=== PATIENT | male | born 1995 | race Caucasian/White ===

== ENCOUNTER 2019-03-28 10:07 | Emergency (ER) | payer OTHER, SELFPAY ==
[2019-03-28] MEDS ORDERED: NA CHLORIDE 0.9% 1,000 ML ONE (11:13)
[2019-03-28] MEDS ORDERED: LORazepam 2 MG/ML VIAL ONE (11:17)
[2019-03-28 11:18] LABS: Absolute Lymphocytes (CBC) 1.5 K/uL (0.7-4.9); Basophils % 0.3 % (0-1.3); Hematocrit 52.2 % (39.6-49.0); MPV 8.1 fL (7.6-11.3); RBC Red Blood Cell Count 5.49 M/uL (4.33-5.43)
[2019-03-28 11:34] LABS: Albumin 4.5 g/dL (3.4-5.0); Bilirubin Direct 0.2 mg/dL (0-0.2); Bilirubin Total 0.9 mg/dL (0.2-1.0); Potassium 4.3 mmol/L (3.5-5.1); Protein, Total 8.5 g/dL (6.4-8.2)
--- NOTE | 2019-03-28 12:41 | ER ---
Nurse's Notes [facility] Name: Porfirio Bangura Age: 23 yrs Sex: Male : 1995 Arrival Date: 03/28/2019 Time: 10:09 Bed 5 Private MD: Diagnosis: Anxiety disorder, unspecified;Nausea and vomiting Presentation: 03/28 10:32 Presenting complaint: Patient states: "I haven't eaten in 4 days, I'm pretty sure its aj1 because of my anxiety and depression" Patient reports that he just hasn't had any appetite. Patient reports nausea, vomiting, diarrhea. Denies fever. Reports epigastric pain when he eats. Transition of care: patient was not received from another setting of care. Onset of symptoms was March 28, 2019. Risk Assessment: Do you want to hurt yourself or someone else? Patient reports no desire to harm self or others. Initial Sepsis Screen: Does the patient meet any 2 criteria? HR > 90 bpm. No. Patient's initial sepsis screen is negative. Does the patient have a suspected source of infection? Yes: Acute abdominal pain. Care prior to arrival: None. 10:32 Method Of Arrival: Ambulatory aj1 10:32 Acuity: FELTON 3 aj1 Triage Assessment: 10:34 General: Appears in no apparent distress. comfortable, Behavior is calm, cooperative, aj1 appropriate for age. Pain: Denies pain. Neuro: Level of Consciousness is awake, alert, obeys commands, Oriented to person, place, time, situation. Cardiovascular: Patient's skin is warm and dry. Respiratory: Airway is patent Respiratory effort is even, unlabored, Respiratory pattern is regular, symmetrical. GI: Reports upper abdominal pain, diarrhea, nausea, vomiting. Historical: - Allergies: 10:34 Bees; aj1 - Home Meds: 10:34 None [Active]; aj1 - PMHx: 10:34 None; aj1 - PSHx: 10:34 None; aj1 - Immunization history:: Flu vaccine is up to date. - Social history:: Smoking status: Patient/guardian denies using tobacco. - Ebola Screening: : Patient denies travel to an Ebola-affected area in the 21 days before illness onset. Screenin:56 Abuse screen: Denies threats or abuse. Denies injuries from another. Nutritional bp screening: No deficits noted. Tuberculosis screening: No symptoms or risk factors identified. Fall Risk None identified. Assessment: 10:56 General: SEE TRIAGE NOTE. bp 11:55 Reassessment: VS STABLE, ALL CURRENT ORDERS COMPLETED. IVF INFUSING. bp 12:55 Reassessment: Patient appears in no apparent distress at this time. Patient is alert, ca1 oriented x 3, equal unlabored respirations, skin warm/dry/pink. Pt reported that one of his buddies are picking him up from the ER. Vital Signs: 10:34 BP 137 / 81; Pulse 92; Resp 18; Temp 98.3; Pulse Ox 100% on R/A; Weight 77.11 kg (R); aj1 Height 5 ft. 11 in. (180.34 cm) (R); Pain 0/10; 11:09 BP 130 / 88; Pulse 87; Resp 16; Pulse Ox 100% ; bp 11:55 BP 127 / 80; Pulse 60; Resp 14; Pulse Ox 100% ; bp 12:58 BP 135 / 78; Pulse 77; Resp 17 S; Pulse Ox 100% on R/A; ca1 10:34 Body Mass Index 23.71 (77.11 kg, 180.34 cm) aj1 ED Course: 10:09 Patient arrived in ED. as 10:34 Triage completed. aj1 10:34 Arm band placed on Patient placed in waiting room, Patient notified of wait time. aj1 10:52 Linh Correia [facility]-C is [facility]. kb 10:52 Titus Lion MD is Attending Physician. kb 10:55 Gareth Natarajan, ANGLE is Primary Nurse. bp 10:56 Patient has correct armband on for positive identification. Bed in low position. Call bp light in reach. Side rails up X2. 11:00 Inserted saline lock: 22 gauge in right forearm, using aseptic technique. Blood bp collected. 12:59 No provider procedures requiring assistance completed. IV discontinued, intact, ca1 bleeding controlled, No redness/swelling at site. Pressure dressing applied. Administered Medications: 11:10 Drug: NS 0.9% 1000 ml Route: IV; Rate: 1000 ml; Site: right forearm; bp 11:17 Drug: Ativan 0.5 mg Route: IVP; Site: right forearm; bp Outcome: 12:38 Discharge ordered by . kb 12:59 Discharged to home ambulatory. ca1 12:59 Condition: stable 12:59 Discharge instructions given to patient, Instructed on discharge instructions, follow up and referral plans. medication usage, Demonstrated understanding of instructions, follow-up care, medications, Prescriptions given X 1. 12:59 Patient left the ED. ca1 Signatures: Linh Correia, COAL PASSER-C COAL PASSER-Darby Blum RN RN aj1 Pati Perry Brian, RN RN bp Stephanie Shabazz RN RN ca1
--- NOTE | 2019-03-28 12:41 | EDPHYS ---
Physician Documentation [facility] Name: Porfirio Bangura Age: 23 yrs Sex: Male : 1995 Arrival Date: 03/28/2019 Time: 10:09 Bed 5 Private MD: ED Physician Titus Lion HPI: 03/28 12:34 This 23 yrs old Male presents to ER via Ambulatory with complaints of kb Depression, Anxiety. 12:34 The patient presents to the emergency department with nausea, vomiting. Onset: The kb symptoms/episode began/occurred 4 day(s) ago. Possible causes: anxiety. The symptoms are aggravated by nothing. The symptoms are alleviated by nothing. Associated signs and symptoms: Pertinent positives: nausea, vomiting. Severity of symptoms: At their worst the symptoms were moderate in the emergency department the symptoms are unchanged. The patient has experienced similar episodes in the past. The patient has not recently seen a physician. Pt reports decreased appetite, nausea and vomiting for 4 days. States he has had this before when his anxiety is high and right now it is "threw the roof." Reports nothing triggered his anxiety, it just comes out of the blue every so often. States he has never taken anything for his anxiety, he normally self medicated with alcohol. Reports he has had a couple of drinks at night to help him sleep over the past few nights.. Historical: - Allergies: 10:34 Bees; aj1 - Home Meds: 10:34 None [Active]; aj1 - PMHx: 10:34 None; aj1 - PSHx: 10:34 None; aj1 - Immunization history:: Flu vaccine is up to date. - Social history:: Smoking status: Patient/guardian denies using tobacco. - Ebola Screening: : Patient denies travel to an Ebola-affected area in the 21 days before illness onset. ROS: 12:33 Constitutional: Negative for fever, chills, and weight loss, ENT: Negative for injury, kb pain, and discharge, Neck: Negative for injury, pain, and swelling, Cardiovascular: Negative for chest pain, palpitations, and edema, Respiratory: Negative for shortness of breath, cough, wheezing, and pleuritic chest pain, Back: Negative for injury and pain, MS/Extremity: Negative for injury and deformity, Skin: Negative for injury, rash, and discoloration, Neuro: Negative for headache, weakness, numbness, tingling, and seizure. 12:33 Constitutional: Positive for poor PO intake. 12:33 Abdomen/GI: Positive for nausea and vomiting. 12:33 Psych: Positive for anxiety. Exam: 12:33 Constitutional: This is a well developed, well nourished patient who is awake, alert, kb and in no acute distress. Head/Face: Normocephalic, atraumatic. ENT: Nares patent. No nasal discharge, no septal abnormalities noted. Tympanic membranes are normal and external auditory canals are clear. Oropharynx with no redness, swelling, or masses, exudates, or evidence of obstruction, uvula midline. Mucous membranes moist. Neck: Trachea midline, no thyromegaly or masses palpated, and no cervical lymphadenopathy. Supple, full range of motion without nuchal rigidity, or vertebral point tenderness. No Meningismus. Chest/axilla: Normal chest wall appearance and motion. Nontender with no deformity. No lesions are appreciated. Cardiovascular: Regular rate and rhythm with a normal S1 and S2. No gallops, murmurs, or rubs. Normal PMI, no JVD. No pulse deficits. Respiratory: Lungs have equal breath sounds bilaterally, clear to auscultation and percussion. No rales, rhonchi or wheezes noted. No increased work of breathing, no retractions or nasal flaring. Abdomen/GI: Soft, non-tender, with normal bowel sounds. No distension or tympany. No guarding or rebound. No evidence of tenderness throughout. Back: No spinal tenderness. No costovertebral tenderness. Full range of motion. Skin: Warm, dry with normal turgor. Normal color with no rashes, no lesions, and no evidence of cellulitis. MS/ Extremity: Pulses equal, no cyanosis. Neurovascular intact. Full, normal range of motion. Neuro: Awake and alert, GCS 15, oriented to person, place, time, and situation. Cranial nerves II-XII grossly intact. Motor strength 5/5 in all extremities. Sensory grossly intact. Cerebellar exam normal. Normal gait. 12:33 Psych: Behavior/mood is cooperative, anxious, Affect is calm, Oriented to person, place, time, Patient has no thoughts/intents to harm self or others. Judgement / Insight is normal. Memory is normal. Delusions/hallucinations are not present. Vital Signs: 10:34 BP 137 / 81; Pulse 92; Resp 18; Temp 98.3; Pulse Ox 100% on R/A; Weight 77.11 kg (R); aj1 Height 5 ft. 11 in. (180.34 cm) (R); Pain 0/10; 11:09 BP 130 / 88; Pulse 87; Resp 16; Pulse Ox 100% ; bp 11:55 BP 127 / 80; Pulse 60; Resp 14; Pulse Ox 100% ; bp 12:58 BP 135 / 78; Pulse 77; Resp 17 S; Pulse Ox 100% on R/A; ca1 10:34 Body Mass Index 23.71 (77.11 kg, 180.34 cm) aj1 MDM: 10:52 Patient medically screened. kb 12:32 Data reviewed: vital signs, nurses notes. Data interpreted: Pulse oximetry: on room air kb is 100 %. Interpretation: normal. Counseling: I had a detailed discussion with the patient and/or guardian regarding: the historical points, exam findings, and any diagnostic results supporting the discharge/admit diagnosis, lab results, the need for outpatient follow up, a family practitioner, to return to the emergency department if symptoms worsen or persist or if there are any questions or concerns that arise at home. ED course: Pt reports he feels better after ativan. 03/28 10:53 Order name: Basic Metabolic Panel; Complete Time: 11:37 kb 03/28 10:53 Order name: CBC with Diff; Complete Time: 11:31 kb 03/28 10:53 Order name: Hepatic Function; Complete Time: 11:37 kb 03/28 10:53 Order name: Lipase; Complete Time: 11:37 kb 03/28 10:53 Order name: IV Saline Lock; Complete Time: 11:09 kb 03/28 10:53 Order name: Labs collected and sent; Complete Time: 11:09 kb Administered Medications: 11:10 Drug: NS 0.9% 1000 ml Route: IV; Rate: 1000 ml; Site: right forearm; bp 11:17 Drug: Ativan 0.5 mg Route: IVP; Site: right forearm; bp Disposition: 17:44 Co-signature as Attending Physician, Titus Lion MD Did not see or evaluate the ps1 patient. Signing the chart for administrative purposes. Not an endorsement of care provided. . Disposition: 03/28/19 12:38 Discharged to Home. Impression: Anxiety disorder, unspecified, Nausea and vomiting. - Condition is Stable. - Discharge Instructions: Nausea and Vomiting, Adult, [id number], Panic Attacks, [id number]. - Prescriptions for Hydroxyzine HCl 25 mg Oral Tablet - take 1 tablet by ORAL route every 6 hours As needed; 30 tablet. - Medication Reconciliation Form, Thank You Letter, Antibiotic Education, Prescription Opioid Use, Work release form form. - Follow up: Emergency Department; When: As needed; Reason: Worsening of condition. Follow up: Private Physician; When: 2 - 3 days; Reason: Recheck today's complaints, Continuance of care, Re-evaluation by your physician. Signatures: Dispatcher [employer] EDLinh Stover, RANDA-C [employer] FLATBED DRIVER-Darby Blum RN RN aj1 Gareth Natarajan RN RN bp Titus Lion MD MD ps1 Stephanie Shabazz RN RN ca1 Corrections: (The following items were deleted from the chart) 12:59 12:38 03/28/2019 12:38 Discharged to Home. Impression: Anxiety disorder, unspecified; ca1 Nausea and vomiting. Condition is Stable. Forms are Medication Reconciliation Form, Thank You Letter, Antibiotic Education, Prescription Opioid Use. Follow up: Emergency Department; When: As needed; Reason: Worsening of condition. Follow up: Private Physician; When: 2 - 3 days; Reason: Recheck today's complaints, Continuance of care, Re-evaluation by your physician. kb
[2019-03-28 13:06] VITALS: TEMP 98.3; O2SAT 100
[2019-03-28 13:09] VITALS: BP 135/78
== END 2019-03-28 12:59 | disposition home or self-care (01) ==
LOC: ER 10:07
DX: F41.9 Anxiety disorder, unspecified (principal); R11.2 Nausea with vomiting, unspecified; Z91.030 Bee allergy status
CPT/HCPCS: 85025; 80048; 36415; 80076; 83690; 96374; 99284; J7030

== ENCOUNTER 2019-03-30 07:10 | Emergency (ER) | payer OTHER ==
--- OUTSIDE RECORDS SUMMARY | 2019-03-30 07:12 | XMS REPORT ---
:1995 [facility] [address] [place] [address] Care Team Providers Name Role Phone Unavailable Unavailable Unavailable Problems This patient has no known problems. Allergies, Adverse Reactions, Alerts This patient has no known allergies or adverse reactions. Medications This patient has no known medications.
[2019-03-30] MEDS ORDERED: DIAZEPAM 2 MG TABLET ONE (07:37)
--- NOTE | 2019-03-30 08:03 | ER ---
Nurse's Notes [facility] Name: Porfirio Bangura Age: 23 yrs Sex: Male : 1995 Arrival Date: 03/30/2019 Time: 07:12 Bed 7 Private MD: Diagnosis: Anxiety disorder, unspecified Presentation: 03/30 07:18 Presenting complaint: Patient states: "Panic attack" Pt reports he has had severe ss anxiety x 5 days. Was seen in ER Friday and given hydroxizine , but reports that it is not helping. Transition of care: patient was not received from another setting of care. Onset of symptoms was March 25, 2019. Risk Assessment: Do you want to hurt yourself or someone else? Patient reports no desire to harm self or others. Initial Sepsis Screen: Does the patient meet any 2 criteria? HR > 90 bpm. Does the patient have a suspected source of infection? No. Patient's initial sepsis screen is negative. Care prior to arrival: None. 07:18 Method Of Arrival: Ambulatory ss 07:18 Acuity: FELTON 4 ss Historical: - Allergies: 07:22 Bees; ss - Home Meds: 07:22 Hydroxyzine Oral for Anxiety [Active]; ss - PMHx: 07:22 None; ss - PSHx: 07:22 None; ss - Immunization history:: Adult Immunizations up to date. - Social history:: Smoking status: Patient uses tobacco products, "I jewel". - Ebola Screening: : Patient denies exposure to infectious person Patient denies travel to an Ebola-affected area in the 21 days before illness onset. Screenin:26 Abuse screen: Denies threats or abuse. Denies injuries from another. Nutritional sg screening: No deficits noted. Tuberculosis screening: No symptoms or risk factors identified. Never had TB. Fall Risk None identified. Assessment: 07:24 General: Appears in no apparent distress. slender, well groomed, well developed, well sg nourished, Behavior is calm, cooperative, appropriate for age. Neuro: Level of Consciousness is awake, alert, obeys commands, Oriented to person, place, time, Insurance Checker are equal bilaterally Moves all extremities. Speech is normal, Facial symmetry appears normal. Cardiovascular: Capillary refill is brisk in bilateral fingers Patient's skin is warm and dry. Chest pain is denied. Respiratory: Airway is patent Respiratory effort is even, unlabored, Respiratory pattern is regular, symmetrical. GI: Abdomen is flat, non-distended. : No signs and/or symptoms were reported regarding the genitourinary system. EENT: No signs and/or symptoms were reported regarding the EENT system. Derm: Skin is pink, warm \\T\\ dry. Musculoskeletal: Circulation, motion, and sensation intact. Range of motion: intact in all extremities. Vital Signs: 07:22 BP 131 / 86; Pulse 92; Resp 18; Temp 98.9(TE); Pulse Ox 99% on R/A; Weight 77.11 kg; ss Height 5 ft. 11 in. (180.34 cm); Pain 0/10; 07:22 Body Mass Index 23.71 (77.11 kg, 180.34 cm) ED Course: 07:12 Patient arrived in ED. rg4 07:14 Braulio Hill FNP-C [facility]. la1 07:14 Jose Santacruz MD is Attending Physician. la1 07:21 Triage completed. ss 07:22 Arm band placed on right wrist. ss 07:24 Michael Duran, RN is Primary Nurse. sg 07:26 No provider procedures requiring assistance completed. sg Administered Medications: 07:37 Drug: Valium 2 mg Route: PO; sg Outcome: 08:02 Discharge ordered by . la1 08:15 Patient left the ED. ss Signatures: Michael Duran, RN Deja Bird RN RN Braulio Hill FNP-C FNP-Flor Littlejohn rg4
--- NOTE | 2019-03-30 08:03 | EDPHYS ---
Physician Documentation [facility] Name: Porfirio Bangura Age: 23 yrs Sex: Male : 1995 Arrival Date: 03/30/2019 Time: 07:12 Bed 7 Private MD: ED Physician Jose Santacruz HPI: 03/30 07:34 This 23 yrs old Male presents to ER via Ambulatory with complaints of Anxiety.la1 07:34 Onset: The symptoms/episode began/occurred last week. Associated signs and symptoms: la1 Pertinent positives: palpitations. Modifying factors: The patient symptoms are alleviated by nothing, the patient symptoms are aggravated by work. The patient has experienced similar episodes in the past, multiple times. The patient has been recently seen at the [facility] Emergency Department. Pt was seen here in ED for anxiety, had labs and was given hydroxyzine. Pt states still not feeling well, very anxious, not sleeping. Pt denies SI/HI.. Historical: - Allergies: 07:22 Bees; ss - Home Meds: 07:22 Hydroxyzine Oral for Anxiety [Active]; ss - PMHx: 07:22 None; ss - PSHx: 07:22 None; ss - Immunization history:: Adult Immunizations up to date. - Social history:: Smoking status: Patient uses tobacco products, "I jewel". - Ebola Screening: : Patient denies exposure to infectious person Patient denies travel to an Ebola-affected area in the 21 days before illness onset. ROS: 07:36 Constitutional: Negative for fever, chills, and weight loss, Eyes: Negative for injury, la1 pain, redness, and discharge, ENT: Negative for injury, pain, and discharge, Cardiovascular: Negative for chest pain, edema. Positive for palpitaitons Respiratory: Negative for shortness of breath, cough, wheezing, and pleuritic chest pain, Abdomen/GI: Negative for abdominal pain, nausea, vomiting, diarrhea, and constipation, MS/Extremity: Negative for injury and deformity, Neuro: Negative for headache, weakness, numbness, tingling, and seizure, Psych: Negative for depression, suicide ideation, homicidal ideation, and hallucinations. Positive for anxiety Exam: 07:37 Constitutional: This is a well developed, well nourished patient who is awake, alert, la1 and in no acute distress. Head/Face: Normocephalic, atraumatic. Chest/axilla: Normal chest wall appearance and motion. Nontender with no deformity. No lesions are appreciated. Cardiovascular: Regular rate and rhythm with a normal S1 and S2. No gallops, murmurs, or rubs. Normal PMI, no JVD. No pulse deficits. Respiratory: Lungs have equal breath sounds bilaterally, clear to auscultation and percussion. No rales, rhonchi or wheezes noted. No increased work of breathing, no retractions or nasal flaring. Abdomen/GI: Soft, non-tender, with normal bowel sounds. No distension or tympany. No guarding or rebound. No evidence of tenderness throughout. Neuro: Awake and alert, GCS 15, oriented to person, place, time, and situation. 07:37 Psych: Behavior/mood is anxious, Affect is calm, Oriented to person, place, time, Patient has no thoughts/intents to harm self or others. Judgement / Insight is normal. Memory is normal. Delusions/hallucinations are not present. Vital Signs: 07:22 BP 131 / 86; Pulse 92; Resp 18; Temp 98.9(TE); Pulse Ox 99% on R/A; Weight 77.11 kg; ss Height 5 ft. 11 in. (180.34 cm); Pain 0/10; 07:22 Body Mass Index 23.71 (77.11 kg, 180.34 cm) ss MDM: 07:14 Patient medically screened. la1 07:58 Data reviewed: vital signs, nurses notes, old medical records, labs from previous la1 visits reviewed EKG. Counseling: I had a detailed discussion with the patient and/or guardian regarding: the historical points, exam findings, and any diagnostic results supporting the discharge/admit diagnosis, the need for outpatient follow up, a family practitioner. Medication response: valium. Response to treatment: the patient's symptoms have mildly improved after treatment. Special discussion: need for establishment of PCP. 03/30 07:32 Order name: EKG; Complete Time: 07:32 la1 03/30 07:32 Order name: EKG - Nurse/Tech; Complete Time: 07:57 la1 Administered Medications: 07:37 Drug: Valium 2 mg Route: PO; sg Disposition: 14:08 Co-signature as Attending Physician, Jose Santacruz MD. rn Disposition: 03/30/19 08:02 Discharged to Home. Impression: Anxiety disorder, unspecified. - Condition is Stable. - Discharge Instructions: Panic Attacks, Generalized Anxiety Disorder. - Work release form, Medication Reconciliation Form, Thank You Letter form. - Follow up: Private Physician; When: 1 - 2 days; Reason: Recheck today's complaints. Follow up: Emergency Department; When: As needed; Reason: Worsening of condition. - Problem is chronic. - Symptoms are unchanged. Signatures: Michael Duran RN RN Jose Santacruz MD MD rn Smirch, Shelby, RN RN ss Liz, Braulio, FLEET MECHANIC-C FLEET MECHANIC-Cla1 Corrections: (The following items were deleted from the chart) 08:15 08:02 03/30/2019 08:02 Discharged to Home. Impression: Anxiety disorder, unspecified. ss Condition is Stable. Discharge Instructions: Panic Attacks, Generalized Anxiety Disorder. Forms are Work release form, Medication Reconciliation Form, Thank You Letter, Antibiotic Education, Prescription Opioid Use. Follow up: Private Physician; When: 1 - 2 days; Reason: Recheck today's complaints. Follow up: Emergency Department; When: As needed; Reason: Worsening of condition. Problem is chronic. Symptoms are unchanged. la1
[2019-03-30 09:35] VITALS: BP 131/86; TEMP 98.9; O2SAT 99
--- NOTE | 2019-03-30 11:30 | EKG ---
Test Date: 2019-03-30 Test Time: 07:55:41 Product Sales Representative: AMY MEASUREMENT RESULTS: Intervals: Rate: 80 MD: 148 QRSD: 90 QT: 330 QTc: 380 [place]: P: 56 MD: 148 QRS: 96 T: 59 INTERPRETIVE STATEMENTS: Normal sinus rhythm with sinus arrhythmia Rightward axis Borderline ECG No previous ECG available for comparison Electronically Signed On 03-30-19 11:29:39 INK TECHNICIAN by Mick Del Castillo
== END 2019-03-30 08:15 | disposition home or self-care (01) ==
LOC: ER 07:10
DX: F41.9 Anxiety disorder, unspecified (principal); Z91.030 Bee allergy status; F17.290 Nicotine dependence, other tobacco product, uncomplicated
CPT/HCPCS: 93005; 99282

== ENCOUNTER 2021-07-30 06:19 | Emergency (ER) | payer OTHER ==
--- OUTSIDE RECORDS SUMMARY | 2021-07-30 06:23 | XMS REPORT | Continuity of Care Document ---
:1995 Author Organization [facility] Address [address] [place] [address] Care Team Providers Name Role Phone Roya Attending Clinician Unavailable NEGAR JORDAN Attending Clinician Unavailable Roya Admitting Clinician Unavailable NEGAR JORDAN Admitting Clinician Unavailable Payers Payer Name Policy Type Policy Number Effective Date Expiration Date Shaggy ROPER [facility] - [id number] 2019 [employer] 00:00:00 () [facility] [id number] 2018 00:00:00 Problems Condition Condition Condition Status Onset Resolution Last Treating Co mments Source Name Details Category Date Date Treatment Clinician Date Anxiety Anxiety Problem Active 2018-04 [place] 2-04 Family 00:00: Practic 00 e Ex-smoker Ex-smoker Problem Active 2018-04 Rosa hudsone 2-04 Family 00:00: Practic 00 e Allergies, Adverse Reactions, Alerts Allergy Allergy Status Severity Reaction(s) Onset Inactive Treating Comm ents Source Name Type Date Date Clinician NO KNOWN Drug Active [facility] ALLERGIE Class ity of [facility] BEE Allergy Active Mild to Other [place] VENOM to moderate Family PROTEIN substanc Practic (HONEY e e BEE) Social History Smoking Status Start Date Stop Date Source Former Smoker [facility] Medications Ordered Filled Start Stop Current Ordering Indication Dosage Frequency Signature Comments Components Source Medication Medication Date Date Medication? Clinician (SIG) Name Name naproxen naproxen No 1 BID naproxen Rosa lynn 500 mg 500 mg 500 mg Family tablet Take tablet Take tablet Practic 1 tablet 1 tablet Take 1 e twice a day twice a day tablet by oral by oral twice a route for route for day by 15 days. 15 days. oral route for 15 days. alprazolam alprazolam No 1 BID alprazolam [place] 0.5 mg 0.5 mg 0.5 mg Family tablet Take tablet Take tablet Practic 1 tablet 1 tablet Take 1 e twice a day twice a day tablet by oral by oral twice a route as route as day by needed. needed. oral route as needed. escitalopra escitalopra No escitalopr [place] m 10 mg m 10 mg am 10 mg Famil y tablet TAKE tablet TAKE tablet Practic ONE(1) ONE(1) TAKE e Tablet BY Tablet BY ONE(1) MOUTH EVERY MOUTH EVERY Tablet BY DAY DAY MOUTH EVERY DAY Medrol Medrol No Medrol [place] (César) 4 mg (César) 4 mg (César) 4 mg Family tablets in tablets in tablets in Practic a dose pack a dose pack a dose e Take as Take as pack Take directed directed as per per directed instruction instruction per s in pack s in pack instructio ns in pack Immunizations Ordered Immunization Filled Immunization Date Status Commen ts Source Name Name COVID-19, mRNA, COVID-19, mRNA, 2020-06-25 Completed [facility] age Family LNP-S, PF, 100 LNP-S, PF, 100 00:00:00 Practi ce mcg/0.5 mL dose mcg/0.5 mL dose COVID-19, mRNA, COVID-19, mRNA, 2020-05-29 Completed Vill age Family LNP-S, PF, 100 LNP-S, PF, 100 00:00:00 Practi ce mcg/0.5 mL dose mcg/0.5 mL dose Vital Signs Vital Name Observation Time Observation Value Comments Source Height 2021-03-02 00:00:00 71 [in_i] [facility] BMI (Body Mass 2021-03-02 00:00:00 25.8 kg/m2 [facility]) Practice Body Weight 2021-03-02 00:00:00 185 [lb_av] [facility] Height 2019-10-26 00:00:00 71 [in_i] [facility] Height 2019-07-26 00:00:00 71 [in_i] [facility] BP Diastolic 2019-05-19 00:00:00 64 mm[Hg] [facility] Height 2019-05-19 00:00:00 71 [in_i] [facility] BMI (Body Mass 2019-05-19 00:00:00 23.3 kg/m2 [facility] Practice BP Systolic 2019-05-19 00:00:00 102 mm[Hg] [facility] Body Weight 2019-05-19 00:00:00 167.2 [lb_av] [facility] BMI (Body Mass 2019-03-31 00:00:00 23.8 kg/m2 [facility]) Practice BP Systolic 2019-03-31 00:00:00 124 mm[Hg] [facility] Body Weight 2019-03-31 00:00:00 170.6 [lb_av] [facility] BP Diastolic 2019-03-31 00:00:00 86 mm[Hg] [facility] Height 2019-03-31 00:00:00 71 [in_i] [facility] Procedures This patient has no known procedures. Encounters Start End Encounter Admission Attending Care Care Encounter Source Date/Time Date/Time Type Type Clinicians Facility Department ID 2021-03-12 2021-03-12 Outpatient Reed_D VFP VFP [id number] [facility] 04:53:00 04:53:00 [id number] Family Practic e 2021-03-02 2021-03-02 Outpatient Reed_D VFP VFP [id number] [facility] 05:10:00 05:10:00 [id number] Family Practic e 2021-03-02 2021-03-02 Manav VFP [place] - [id number] [facility] ill[facility] 00:00:00 00:00:00 Jaun [facility] Family Gibson MD: Medical - Prac tic [id number] [facility] [address] [address] , Ph. 2021-02-27 2021-02-27 Outpatient Reed_D VFP VFP [id number] [facility] 08:41:00 08:41:00 [id number] Family Practic e 2020-02-08 2020-02-08 Outpatient Reed_D VFP VFP [id number] [facility] 02:52:00 02:52:00 [id number] Family Practic e 2019-12-15 2019-12-15 Outpatient Reed_D VFP VFP [id number] [facility] 12:35:00 12:35:00 [id number] Family Practic e 2019-10-28 2019-10-28 Outpatient Reed_D VFP VFP [id number] [facility] 05:51:00 05:51:00 [id number] Family Practic e 2019-10-26 2019-10-26 Outpatient Reed_D VFP VFP [id number] [facility] 10:17:00 10:17:00 [id number] Family Practic e 2019-10-26 2019-10-26 Manav VFP [place] - [id number] [facility] 00:00:00 00:00:00 [facility] Family Gibson MD: Medical - Prac tic [id number] [facility] [facility] [address] [address] , Ph. 2019-09-21 2019-09-21 Outpatient Reed_D VFP VFP [id number] [facility] 02:33:00 02:33:00 [id number] Family Practic e 2019-08-23 2019-08-23 Outpatient Reed_D VFP VFP [id number] [facility] 01:26:00 01:26:00 [id number] Family Practic e 2019-08-05 2019-08-05 Outpatient Reed_D VFP VFP [id number] [facility] 06:18:00 06:18:00 [id number] Family Practic e 2019-07-26 2019-07-26 Outpatient Reed_D VFP VFP [id number] [facility] 10:32:00 10:32:00 [id number] Family Practic e 2019-07-26 2019-07-26 Manav VFP [place] - [id number] [facility] 00:00:00 00:00:00 [facility] Family Gibson MD: Medical - Prac tic [id number] [address] [address] , Ph. 2019-07-22 2019-07-22 Outpatient Reed_D VFP VFP [id number] [facility] 08:53:00 08:53:00 [id number] Family Practic e 2019-05-28 2019-05-28 Outpatient Reed_D VFP VFP [id number] [facility] 10:37:00 10:37:00 [id number] Family Practic e 2019-05-20 2019-05-20 Outpatient Reed_D VFP VFP [id number] [facility] 01:39:00 01:39:00 [id number] Family Practic e 2019-05-19 2019-05-19 Outpatient Reed_D VFP VFP [id number] [facility] 01:58:00 01:58:00 [id number] Family Practic e 2019-05-19 2019-05-19 Manav VFP [place] - [id number] [facility] 00:00:00 00:00:00 Jaun Arreaga MD: Medical - Prac tic [id number] [address] [address] , Ph. 2019-05-14 2019-05-14 Outpatient Reed_D VFP VFP [id number] [facility] 03:49:00 03:49:00 [id number] Family Practic e 2019-05-13 2019-05-13 Outpatient Reed_D VFP VFP [id number] [facility] 05:05:00 05:05:00 [id number] Family Practic e 2019-03-31 2019-03-31 Manav VFP [place] - [id number] [facility] 00:00:00 00:00:00 Jaun Arreaga MD: Medical - Prac tic [id number] [address], [place] [address] , Ph. 2018-06-07 2018-06-07 Emergency X NIKKI, [facility] ERT [id number] [facility] 08:29:54 10:07:00 SUSANA rosales [facility] Results This patient has no known results.
[2021-07-30 07:07] LABS: Absolute Lymphocytes (CBC) 1.9 K/uL (0.7-4.9); Hematocrit 43.9 % (39.6-49.0); Lymphocytes % 27.6 % (15.3-44.8); MPV 7.7 fL (7.6-11.3); RBC Red Blood Cell Count 4.76 M/uL (4.33-5.43)
[2021-07-30 07:17] LABS: Urine Blood Negative (Negative); Urine Glucose Negative (Negative); Urine Protein Negative (Negative); Urine Specific Gravity 1.025 (1.005-1.030)
[2021-07-30 07:24] LABS: Albumin 3.9 g/dL (3.4-5.0); Bilirubin Total 0.9 mg/dL (0.2-1.0); Potassium 3.6 mmol/L (3.5-5.1); Protein, Total 8.3 g/dL (6.4-8.2)
[2021-07-30] MEDS ORDERED: LIDOCAINE VISCOUS 2% SOLN 15 ML UDC ONE (07:43)
[2021-07-30] MEDS ORDERED: MAGNES/ALUMIN/SIMET 30ML UCUP ONE (07:43)
[2021-07-30] MEDS ORDERED: ONDANSETRON 4 MG (ODT) TAB ONE (07:43)
--- NOTE | 2021-07-30 07:45 | EDPHYS ---
Physician Documentation [facility] Name: Porfirio Bangura Age: 26 yrs Sex: Male : 1995 Arrival Date: 07/30/2021 Time: 06:24 Bed 14 Private MD: ED Physician Walt Larson HPI: 07/30 06:48 This 26 yrs old Male presents to ER via Ambulatory with complaints of Vomiting, Nose cp Problem. 06:48 The patient presents to the emergency department with nausea, that is mild, vomiting, cp that is intermittent, 3 times since yesterday, diarrhea, that is intermittent, 1 times since yesterday, abdominal pain, of the mid abdomen, described as burning, and does not radiate. Onset: The symptoms/episode began/occurred 3 day(s) ago. Possible causes: unknown. Associated signs and symptoms: Pertinent positives: reports expelling clot of blood from nose this morning, Pertinent negatives: fever. Severity of symptoms: in the emergency department the symptoms have improved moderately. Historical: - Allergies: 06:29 Bees; lg3 - Home Meds: 06:29 Omeprazole Oral [Active]; escitalopram oxalate oral [Active]; Hydroxyzine Oral for lg3 Anxiety [Active]; - PMHx: 06:29 Anxiety; depression; lg3 - PSHx: 06:29 None; lg3 - Immunization history:: Adult Immunizations unknown, Client reports receiving the 2nd dose of the Covid vaccine, moderna X2. - Social history:: Smoking status: Reported history of juuling and/or vaping. Patient uses alcohol, occasionally. ROS: 06:55 Constitutional: Negative for body aches, chills, fever, poor PO intake. cp 06:55 Eyes: Negative for injury, pain, redness, and discharge. cp 06:55 ENT: Negative for drainage from ear(s), ear pain, sore throat, difficulty swallowing, difficulty handling secretions. 06:55 Respiratory: Negative for cough, shortness of breath, wheezing. 06:55 Abdomen/GI: Positive for nausea, vomiting, and diarrhea, anorexia, Negative for abdominal pain, constipation, hematemesis. 06:55 Neuro: Negative for altered mental status, headache, weakness. 06:55 All other systems are negative. Exam: 07:00 Constitutional: The patient appears in no acute distress, alert, awake, comfortable, cp non-toxic, well developed, well nourished. 07:00 Head/Face: Normocephalic, atraumatic. cp 07:00 Eyes: Periorbital structures: appear normal, Conjunctiva: normal, no exudate, no injection, Sclera: no appreciated abnormality, Lids and lashes: appear normal, bilaterally. 07:00 ENT: External ear(s): are unremarkable, Ear canal(s): are normal, clear, TM's: are normal, no evidence of bulging, no erythema, Nose: is normal, Mouth: Lips: moist, Oral mucosa: pink and intact, moist, Posterior pharynx: Airway: no evidence of obstruction, patent. 07:00 Chest/axilla: Inspection: normal, Palpation: is normal, no crepitus, no tenderness. 07:00 Cardiovascular: Rate: normal, Rhythm: regular. 07:00 Respiratory: the patient does not display signs of respiratory distress, Respirations: normal, no use of accessory muscles, no retractions, labored breathing, is not present, Breath sounds: are clear throughout, no decreased breath sounds, no stridor, no wheezing. 07:00 Abdomen/GI: Inspection: abdomen appears normal, Bowel sounds: active, all quadrants, Palpation: abdomen is soft and non-tender, in all quadrants. 07:00 Back: pain, is absent, ROM is normal. 07:00 Neuro: Orientation: to person, place \T\ time. Mentation: is normal. Vital Signs: 06:27 BP 135 / 86; Pulse 77; Resp 17 S; Temp 98.1(O); Pulse Ox 100% on R/A; Weight 83.91 kg lg3 (R); Height 5 ft. 11 in. (180.34 cm) (R); Pain 0/10; 06:27 Body Mass Index 25.80 (83.91 kg, 180.34 cm) lg3 MDM: 06:40 Patient medically screened. cp 07:00 Differential diagnosis: gastritis, cholecystitis, pancreatitis, appendicitis, viral cp gastroenteritis, gastroenteritis. 07:44 Data reviewed: vital signs, nurses notes, lab test result(s), radiologic studies, cp ultrasound. 07:44 Counseling: I had a detailed discussion with the patient and/or guardian regarding: the cp historical points, exam findings, and any diagnostic results supporting the discharge/admit diagnosis, lab results, radiology results, to return to the emergency department if symptoms worsen or persist or if there are any questions or concerns that arise at home. Response to treatment: the patient's symptoms have markedly improved after treatment, nausea improved and vomiting resolved. Will discharge to home for continued monitoring. 07/30 06:52 Order name: CBC with Diff; Complete Time: 07:23 cp 07/30 07:23 Interpretation: Normal except: RDW 11.8. cp 07/30 06:52 Order name: CMP; Complete Time: 07:29 cp 07/30 07:30 Interpretation: Normal except: GLUC 110; GFR 76; AST 49; ALK 149; TP 8.3; GLOB 4.4; A/G cp 0.9. 07/30 06:52 Order name: Lipase; Complete Time: 07:29 cp 07/30 07:30 Interpretation: Reviewed. cp 07/30 06:52 Order name: Abdomen Limited US: RUQ cp 07/30 07:18 Order name: Urine Dipstick-Ancillary; Complete Time: 07:23 EDMS 07/30 07:23 Interpretation: Reviewed. cp 07/30 06:52 Order name: IV Saline Lock; Complete Time: 07:02 cp 07/30 06:52 Order name: Labs collected and sent; Complete Time: 07:02 cp 07/30 06:52 Order name: Urine Dipstick-Ancillary (obtain specimen); Complete Time: 07:17 cp 07/30 07:30 Order name: PO challenge; Complete Time: 07:44 cp Administered Medications: 06:47 CANCELLED (Physician Discretion): Pepcid (famotidine) 20 mg PO once cp 07:44 Drug: Zofran (Ondansetron) 4 mg Route: PO; ww 07:44 Drug: GI Cocktail without - (Maalox Suspension 30 ml, Lidocaine Liquid 2 % 15 ww ml) Route: PO; Disposition Summary: 07/30/21 07:44 Discharge Ordered Location: Home cp Problem: new cp Symptoms: have improved cp Condition: Stable cp Diagnosis - Nausea with vomiting, unspecified cp - Diarrhea, unspecified cp Followup: cp - With: Private Physician - When: 2 - 3 days - Reason: Recheck today's complaints Discharge Instructions: - Discharge Summary Sheet cp - Food Choices to Help Relieve Diarrhea, Adult cp - Diarrhea, Adult cp - Nausea and Vomiting, Adult cp Forms: - Medication Reconciliation Form cp - Thank You Letter cp - Antibiotic Education cp - Prescription Opioid Use cp - Work release form ww Prescriptions: - Zofran 4 mg Oral Tablet - take 1 tablet by ORAL route every 12 hours As needed; 20 tablet; Refills: 0, cp Product Selection Permitted - Pepcid 20 mg Oral Tablet - take 1 tablet by ORAL route once daily; 20 tablet; Refills: 0, Product cp Selection Permitted Addendum: 08/05/2021 19:31 Co-signature as Attending Physician, Walt Larson MD. [facility] Signatures: Dispatcher [employer] EDMS Miguel Miller PA PA cp Darlene Stoner RN RN lg3 Walt Larson MD MD mh7 Eva Gusman RN RN ww Corrections: (The following items were deleted from the chart) 07/30 06:47 06:47 Pepcid (famotidine) 20 mg PO once ordered. cp cp 07:30 07:29 Normal except: GLUC 110; GFR 76. cp cp
--- NOTE | 2021-07-30 07:45 | ER ---
Nurse's Notes [facility] Name: Porfirio Bangura Age: 26 yrs Sex: Male : 1995 Arrival Date: 07/30/2021 Time: 06:24 Bed 14 Private MD: Diagnosis: Nausea with vomiting, unspecified;Diarrhea, unspecified Presentation: 07/30 06:27 Chief complaint: Patient states: cannot keep food down for 3 days .no recent nose lg3 bleeds but blowing blood clots out of nose. Coronavirus screen: Client denies travel out of the [place] in the last 14 days. At this time, the client does not indicate any symptoms associated with coronavirus-19. Ebola Screen: No symptoms or risks identified at this time. Initial Sepsis Screen: Does the patient meet any 2 criteria? No. Patient's initial sepsis screen is negative. Does the patient have a suspected source of infection? No. Patient's initial sepsis screen is negative. Risk Assessment: Do you want to hurt yourself or someone else? Patient reports no desire to harm self or others. Onset of symptoms was July 27, 2021. 06:27 Method Of Arrival: Ambulatory lg3 06:27 Acuity: FELTON 4 lg3 07:33 Acuity: FELTON 3 iw Triage Assessment: 06:29 General: Appears in no apparent distress. comfortable, Behavior is calm, cooperative. lg3 Pain: Denies pain. EENT: No deficits noted. Reports nasal discharge that is bloody. Neuro: No deficits noted. Level of Consciousness is awake, alert, obeys commands, Oriented to person, place, time, situation. Cardiovascular: No deficits noted. Denies chest pain, shortness of breath. Respiratory: No deficits noted. Airway is patent Trachea midline Respiratory effort is even, unlabored, Respiratory pattern is regular, symmetrical. GI: Reports nausea, vomiting. : No deficits noted. No signs and/or symptoms were reported regarding the genitourinary system. Derm: No deficits noted. No signs and/or symptoms reported regarding the dermatologic system. Skin is intact, is healthy with good turgor, Skin is dry. Musculoskeletal: No deficits noted. No signs and/or symptoms reported regarding the musculoskeletal system. Circulation, motion, and sensation intact. Capillary refill < 3 seconds, Range of motion: intact in all extremities. Historical: - Allergies: :29 Bees; lg3 - Home Meds: 06:29 Omeprazole Oral [Active]; escitalopram oxalate oral [Active]; Hydroxyzine Oral for lg3 Anxiety [Active]; - PMHx: :29 Anxiety; depression; lg3 - PSHx: :29 None; lg3 - Immunization history:: Adult Immunizations unknown, Client reports receiving the 2nd dose of the Covid vaccine, moderna X2. - Social history:: Smoking status: Reported history of juuling and/or vaping. Patient uses alcohol, occasionally. Screenin:33 Abuse screen: Denies threats or abuse. Denies injuries from another. Nutritional lg3 screening: No deficits noted. Tuberculosis screening: No symptoms or risk factors identified. Fall Risk None identified. Assessment: 07:25 General: Appears in no apparent distress. comfortable, Behavior is calm, cooperative, ww appropriate for age. Neuro: Level of Consciousness is awake, alert, obeys commands, Oriented to person, place, time, situation, Moves all extremities. Gait is steady. Cardiovascular: Capillary refill < 3 seconds Patient's skin is warm and dry. Respiratory: Airway is patent Respiratory effort is even, unlabored, Respiratory pattern is regular, symmetrical. GI: Abdomen is non-distended, Reports upper abdominal pain, indigestion. Derm: Skin is intact, is healthy with good turgor, Skin is pink, warm \T\ dry. Musculoskeletal: No signs and/or symptoms reported regarding the musculoskeletal system. Circulation, motion, and sensation intact. Vital Signs: 06:27 BP 135 / 86; Pulse 77; Resp 17 S; Temp 98.1(O); Pulse Ox 100% on R/A; Weight 83.91 kg lg3 (R); Height 5 ft. 11 in. (180.34 cm) (R); Pain 0/10; 06:27 Body Mass Index 25.80 (83.91 kg, 180.34 cm) lg3 ED Course: 06:24 Patient arrived in ED. ja2 06:27 Miguel Miller PA is PHCP. cp 06:27 Walt Larson MD is Attending Physician. cp 06:29 Triage completed. lg3 06:29 Arm band placed on right wrist. lg3 06:34 Antonette Cole, ANGLE is Primary Nurse. 5 06:48 Patient has correct armband on for positive identification. Bed in low position. Call [facility] light in reach. Side rails up X2. 07:01 Inserted saline lock: 20 gauge in right wrist, using aseptic technique. Blood collected.5 07:02 CBC with Diff Sent. 5 07:02 CMP Sent. 5 07:02 Lipase Sent. 5 07:12 Abdomen Limited US: RUQ In Process Unspecified. EDMS 07:25 No provider procedures requiring assistance completed. IV discontinued, bleeding ww controlled, No redness/swelling at site. Pressure dressing applied. Administered Medications: 06:47 CANCELLED (Physician Discretion): Pepcid (famotidine) 20 mg PO once cp 07:44 Drug: Zofran (Ondansetron) 4 mg Route: PO; ww 07:44 Drug: GI Cocktail without - (Maalox Suspension 30 ml, Lidocaine Liquid 2 % 15 ww ml) Route: PO; Outcome: :44 Discharge ordered by MD. cp 08:03 Discharged to home ambulatory. ww 08:03 Condition: stable 08:03 Discharge instructions given to patient, Instructed on discharge instructions, follow up and referral plans. medication usage, safety practices, Demonstrated understanding of instructions, follow-up care, medications, Prescriptions given X 2. 08:03 Patient left the ED. ww Signatures: Dispatcher [employer] Joselyn Chan, RN Miguel Foss PA PA cp Gibson, Lacie, RN RN lg3 Jodi Jeronimo Sarah, RN RN sm5 Eva Gusman RN RN ww
--- NOTE | 2021-07-30 08:08 | RAD REPORT ---
EXAM DESCRIPTION: US - Abdomen Exam Limited - 07/30/2021 7:10 am CLINICAL HISTORY: ABD PAIN COMPARISON: No comparisons FINDINGS: The gallbladder demonstrates no gallstones. No pericholecystic fluid or gallbladder wall t hickening. The common bile duct is normal measuring 2 mm. The liver demonstrates no findings of intrahepatic biliary dilatation. IMPRESSION: Unremarkable examination.
[2021-07-30 08:16] VITALS: BP 135/86; TEMP 98.1; O2SAT 100
== END 2021-07-30 08:03 | disposition home or self-care (01) ==
LOC: ER 06:19
DX: R11.2 Nausea with vomiting, unspecified (principal); R19.7 Diarrhea, unspecified; F41.8 Other specified anxiety disorders; Z91.030 Bee allergy status
CPT/HCPCS: 36415; 76705; 80053; 81003; 83690; 85025; 99284

== ENCOUNTER 2022-11-27 19:27 | Emergency (ER) | payer OTHER ==
--- OUTSIDE RECORDS SUMMARY | 2022-11-27 19:33 | XMS REPORT | Continuity of Care Document ---
:1995 Author Organization [facility] t Address [address] [place] [address] [address] [place] [address] Care Team Providers Name Role Phone PCP, PATIENT DOES NOT HAVE A Primary Care Physician UnavailRADHA Coreas Attending Clinician Unavailable Radha Carrasquillo MD Attending Clinician [phone] SCOOTER FIERRO Attending Clinician Unavailable [facility] Attending Clinician Unavailable Unknown, Attending Attending Clinician Unavailable Doctor Unassigned, [place] Attending Clinician Unavailable Roya Attending Clinician Unavailable SUSANA JORDAN Attending Clinician Unavailable RADHA CARRASQUILLO Admitting Clinician Unavailable Roya Admitting Clinician Unavailable SUSANA JORDAN Admitting Clinician Unavailable Payers Payer Name Policy Type Policy Number Effective Date Expiration Date Shaggy NEGRETE [id number] 2022 00:00:00 [facility] [id number] 2019 [employer] 00:00:00 () [facility] [id number] 2018 00:00:00 Problems Condition Condition Condition Status Onset Resolution Last Treating Co mments Source Name Details Category Date Date Treatment Clinician Date Anxiety Anxiety Problem Active 2018-04 Village 2-04 Family 00:00: Practic 00 e Ex-smoker Ex-smoker Problem Active 2018-04 Rosa lynn 2-04 Family 00:00: Practic 00 e Allergies, Adverse Reactions, Alerts Allergy Allergy Status Severity Reaction(s) Onset Inactive Treating Comm ents Source Name Type Date Date Clinician NO KNOWN Drug Active Univers ALLERGIE Class ity of S [facility] BEE Allergy Active Mild to Other Village VENOM to moderate Family PROTEIN substanc Practic (HONEY e e BEE) Social History Social Habit Start Date Stop Date Quantity Comments Source Exposure to 2022-03-18 2022-03-28 Not sure [facility] SARS-CoV-2 00:00:00 11:53:00 [facility] (event) [place] Tobacco use and 2022-03-28 2022-03-28 Smokeless tobacco Un iversity of exposure 00:00:00 00:00:00 non-user [facility] Sex Assigned At [birth year] Universit y of 00:00:00 00:00:00 [facility] Smoking Status Start Date Stop Date Source Tobacco smoking consumption Univ [facility] Former Smoker [place] Family P aldo Never smoked tobacco [facility] Medications Ordered Filled Start Stop Current Ordering Indication Dosage Frequency Signature Comments Components Source Medication Medication Date Date Medication? Clinician (SIG) Name Name iopamidol 2021-04 No [id number] 80mL 80 mL, U nivers (ISOVUE 05-29 Intravenou ity o f 370-500 mL) 20:45: 20:45 s, ONCE, 1 [place] injection 00 :00 dose, On Medica l 80 mL [facility] 03/28/22 at 1445, Routine ondansetron 2021-04 Yes [id number] 4mg Take 1 Univers (ZOFRAN) 4 2-01 tablet by ity of mg tablet 00:00: mouth [place] 00 every 8 Medical (eight) Branch hours as needed for Nausea and Vomiting (N/V). acetaminoph Yes [id number] 1{tbl} Take 1 Univers en-codeine 2-10 [id number] tablet by it y of 300-30 mg 00:00: mouth [place] tablet 00 every 6 Medical (six) Branch hours as needed for Pain (scale 4-6). acetaminoph Yes [id number] 1{tbl} Take 1 Univers en-codeine 2-10 [id number] tablet by it y of 300-30 mg 00:00: mouth [place] tablet 00 every 6 Medical (six) Branch hours as needed for Pain (scale 4-6). acetaminoph Yes [id number] 1{tbl} Take 1 Univers en-codeine 2-10 [id number] tablet by it y of 300-30 mg 00:00: mouth [place] tablet 00 every 6 Medical (six) Branch hours as needed for Pain (scale 4-6). naproxen naproxen No 1 BID naproxen Rosa [...] Ordered Immunization Filled Immunization Date Status Commen Source Name Name COVID-19, mRNA, COVID-19, mRNA, 2020-06-25 Completed Vill age Family LNP-S, PF, 100 LNP-S, PF, 100 00:00:00 Practi ce mcg/0.5 mL dose mcg/0.5 mL dose COVID-19, mRNA, COVID-19, mRNA, 2020-05-29 Completed Vill age Family LNP-S, PF, 100 LNP-S, PF, 100 00:00:00 Practi ce mcg/0.5 mL dose mcg/0.5 mL dose Vital Signs Vital Name Observation Time Observation Value Comments Source Systolic blood 2022-03-28 22:00:00 128 mm[Hg] Univer [facility] Diastolic blood 2022-03-28 22:00:00 78 mm[Hg] Unive [facility] Heart rate 2022-03-28 22:00:00 78 /min [facility] Body temperature 2022-03-28 22:00:00 37.22 Melissa [facility] Respiratory rate 2022-03-28 22:00:00 18 /min [facility] Oxygen saturation in 2022-03-28 22:00:00 99 /min University of Arterial blood by [facility] Pulse oximetry Branch Body height 2022-03-28 17:54:00 180.3 cm [facility] Body weight 2022-03-28 17:54:00 83.008 kg [facility] BMI 2022-03-28 17:54:00 25.52 kg/m2 [facility] Systolic blood 2022-03-28 17:34:00 132 mm[Hg] Univer [facility] Diastolic blood 2022-03-28 17:34:00 91 mm[Hg] Unive [facility]ity [facility] Heart rate 2022-03-28 17:33:00 83 /min [facility] Body temperature 2022-03-28 17:33:00 36.78 Melissa [facility] Respiratory rate 2022-03-28 17:33:00 16 /min [facility] Body height 2022-03-28 17:33:00 180.3 cm [facility] Body weight 2022-03-28 17:33:00 83.008 kg [facility] BMI 2022-03-28 17:33:00 25.52 kg/m2 [facility] Oxygen saturation in 2022-03-28 17:33:00 99 /min University of Arterial blood by [facility] Pulse oximetry Branch Height 2021-03-02 00:00:00 71 [in_i] [facility] BMI (Body Mass 2021-03-02 00:00:00 25.8 kg/m2 [facility] Index) Practice Body Weight 2021-03-02 00:00:00 185 [lb_av] [facility] Height 2019-10-26 00:00:00 71 [in_i] [facility] Height 2019-07-26 00:00:00 71 [in_i] [facility] BP Diastolic 2019-05-19 00:00:00 64 mm[Hg] [facility] Height 2019-05-19 00:00:00 71 [in_i] [facility] BMI (Body Mass 2019-05-19 00:00:00 23.3 kg/m2 [facility] Family Index) Practice BP Systolic 2019-05-19 00:00:00 102 mm[Hg] [facility] Body Weight 2019-05-19 00:00:00 167.2 [lb_av] [facility] BP Diastolic 2019-03-31 00:00:00 86 mm[Hg] [facility] Height 2019-03-31 00:00:00 71 [in_i] [facility] BMI (Body Mass 2019-03-31 00:00:00 23.8 kg/m2 [facility] Family Index) Practice BP Systolic 2019-03-31 00:00:00 124 mm[Hg] [facility] Body Weight 2019-03-31 00:00:00 170.6 [lb_av] [facility] Procedures Procedure Date / Time Performed Performing Clinician [facility] e CT ABDOMEN PELVIS W 2022-03-28 19:56:34 Radha Carrasquillo [facility] CONTRAST [facility] LIPASE 2022-03-28 18:29:[address] [facility] COMP. METABOLIC PANEL 2022-03-28 18:29:00 Radha Carrasquillo [facility] ([id number]) [facility] CBC WITH DIFF 2022-03-28 18:29:[address] [facility] URINALYSIS 2022-03-28 18:29:[address] [facility] CONSENT/REFUSAL FOR 2022-03-28 17:48:19 Doctor Unassigned, No [facility] DIAGNOSIS AND [facility] TREATMENT ASSIGNMENT OF BENEFITS 2022-03-28 17:24:08 Doctor Unassigned, No [facility] Encounters Start End Encounter Admission Attending Care Care Encounter Source Date/Time Date/Time Type Type Clinicians Facility Department ID 2022-03-28 2022-03-28 Emergency X JANNETTE [facility] ERT [id number] Univers 12:04:00 16:12:00 RADHA [facility] 2022-03-28 2022-03-28 Emergency [place] [facility] [id number] Univers 12:04:00 16:12:00 , Radha TYSON [id number] i ty of [facility] [id number] [place] [facility] [id number] [facility] 084 [place] 2022-03-28 2022-03-28 Outpatient Doc FIERRO [facility] [id number] Univers 11:30:00 12:05:17 SCOOETR ity of [facility] 2022-03-28 2022-03-28 Nurse Nurse, Martín [facility] [id number] Univers 11:30:00 11:50:00 Visit Unknown, Attending HEALTH [id number] ity of [place] [id number] Raji as GREGG?BLEA [id number] Tn dical [address] MEDICAL OFFICE BUILDING 2022-03-28 2022-03-28 Orders Doctor ROXANNE [id number] Univers 00:00:00 00:00:00 Only Unassigned, JESSE [id number] ity of [place] [facility] [id number] Raji as [id number] [facility] 009 [place] 2021-03-12 2021-03-12 Outpatient Reed_D VFP VFP [id number] [facility] 04:53:00 04:53:00 [id number] Family Practic e 2021-03-02 2021-03-02 Outpatient Reed_D VFP VFP [id number] 05:10:00 05:10:00 [id number] Family Practic e 2021-03-02 2021-03-02 Manav P [place] - [id number] V illage 00:00:00 00:00:00 Jaun Arreaga MD: Medical - Prac tic [id number] GIO[facility]IFEOMA[facility] [address] [address] , Ph. 2021-02-27 2021-02-27 Outpatient Reed_D VFP VFP [id number] 08:41:00 08:41:00 [id number] Family Practic e 2020-02-08 2020-02-08 Outpatient Reed_D VFP VFP [id number] [facility] 02:52:00 02:52:00 [id number] Family Practic e 2019-12-15 2019-12-15 Outpatient Reed_D VFP VFP [id number] 202 [facility] 12:35:00 12:35:00 [id number] Family Practic e 2019-10-28 2019-10-28 Outpatient Reed_D VFP VFP [id number] 202 [facility] 05:51:00 05:51:00 [id number] Family Practic e 2019-10-26 2019-10-26 Outpatient Reed_D VFP VFP [id number] 202 [facility] 10:17:00 10:17:00 [id number] Family Practic e 2019-10-26 2019-10-26 Manav VFP [place] - [id number] V illage 00:00:00 00:00:00 Jaun Arreaga MD: Medical - Prac tic [address] [facility] [address] [address] , Ph. 2019-09-21 2019-09-21 Outpatient Reed_D VFP VFP [id number] 202 [facility] 02:33:00 02:33:00 [id number] Family Practic e 2019-08-23 2019-08-23 Outpatient Reed_D VFP VFP [id number] 202 [facility] 01:26:00 01:26:00 [id number] Family Practic e 2019-08-05 2019-08-05 Outpatient Reed_D VFP VFP [id number] 202 [facility] 06:18:00 06:18:00 [id number] Family Practic e 2019-07-26 2019-07-26 Outpatient Reed_D VFP VFP [id number] 202 [facility] 10:32:00 10:32:00 [id number] Family Practic e 2019-07-26 2019-07-26 Manav VFP [place] - [id number] V illage 00:00:00 00:00:00 Jaun Arreaga MD: Medical - Prac tic [address] [facility] [address] [address] , Ph. 2019-07-22 2019-07-22 Outpatient Reed_D VFP VFP [id number]- [facility] 08:53:00 08:53:00 [id number] Family Practic e 2019-05-28 2019-05-28 Outpatient Reed_D VFP VFP [id number]- [facility] 10:37:00 10:37:00 [id number] Family Practic e 2019-05-20 2019-05-20 Outpatient Reed_D VFP VFP [id number] 202 [facility] 01:39:00 01:39:00 [id number] Family Practic e 2019-05-19 2019-05-19 Outpatient Reed_D VFP VFP [id number]- [facility] 01:58:00 01:58:00 [id number] Family Practic e 2019-05-19 2019-05-19 Manav VFP [place] - [id number] V illage 00:00:00 00:00:00 Jaun Arreaga MD: Medical - Prac tic [address] [facility] e [place] [phone] , Ph. 2019-05-14 2019-05-14 Outpatient Reed_D VFP VFP [id number]- [facility] 03:49:00 03:49:00 [id number] Family Practic e 2019-05-13 2019-05-13 Outpatient Reed_D VFP VFP [id number]- [facility] 05:05:00 05:05:00 [id number] Family Practic e 2019-03-31 2019-03-31 Manav VFP [place] - [id number] V illage 00:00:00 00:00:00 Jaun Arreaga MD: Medical - Prac tic [id number] [facility] [address] [address] , Ph. 2018-06-07 2018-06-07 Emergency X NIKKI, [facility] ERT [id number] Univers 08:29:54 10:07:00 SUSANA rosales [facility] Results This patient has no known results.
[2022-11-27] MEDS ORDERED: NA CHLORIDE 0.9% 1,000 ML ONE (20:42)
[2022-11-27 20:58] LABS: Absolute Lymphocytes (CBC) 2.5 K/uL (0.7-4.9); Hematocrit 43.4 % (39.6-49.0); Lymphocytes % 29.2 % (15.3-44.8); MCV 94.7 fL (80-100); MPV 7.7 fL (7.6-11.3); RBC Red Blood Cell Count 4.58 M/uL (4.33-5.43)
[2022-11-27 21:20] LABS: Bilirubin Total 0.6 mg/dL (0.2-1.0); Potassium 3.7 mEq/L (3.5-5.1); Protein, Total 7.8 g/dL (6.4-8.2); Thyroid Stimulating Hormone 2.75 uIU/mL (0.358-3.740); Troponin High Sensitivity 3.9 pg/mL (<58.9)
--- NOTE | 2022-11-27 22:11 | ER ---
Nurse's Notes [facility] Name: Porfirio Bangura Age: 27 yrs Sex: Male : 1995 Arrival Date: 11/27/2022 Time: 19:27 Bed 18 Private MD: Diagnosis: Dehydration Presentation: 11/27 19:42 Chief complaint: Patient states: since 1 pm today, his thought process has been iw declining and his cognitive ability has declined , his brain feels like it's melting, and he has trouble swallowing, has dry mouth, was in the sun earlier today for 1-2 hours, denies pain , denies drug or alcohol use. Coronavirus screen: At this time, the client does not indicate any symptoms associated with coronavirus-19. Ebola Screen: Patient negative for fever greater than or equal to 101.5 degrees Fahrenheit, and additional compatible Ebola Virus Disease symptoms Patient denies exposure to infectious person. Patient denies travel to an Ebola-affected area in the 21 days before illness onset. No symptoms or risks identified at this time. Initial Sepsis Screen: Does the patient meet any 2 criteria? No. Patient's initial sepsis screen is negative. Does the patient have a suspected source of infection? No. Patient's initial sepsis screen is negative. Risk Assessment: Do you want to hurt yourself or someone else? Patient reports no desire to harm self or others. Onset of symptoms was November 27, 2022. 19:42 Method Of Arrival: Ambulatory iw 19:42 Acuity: FELTON 3 iw Historical: - Allergies: 19:47 Bees; iw - PMHx: 19:47 Anxiety; Depression; iw - Immunization history:: Adult Immunizations unknown. - Social history:: Smoking status: Patient/guardian denies using alcohol, street drugs. - Family history:: not pertinent. Screenin:50 [facility] ED Fall Risk Assessment (Adult) Score/Fall Risk Level 0 - 2 = Low Risk. Abuse as6 screen: Denies threats or abuse. Denies injuries from another. Nutritional screening: No deficits noted. Tuberculosis screening: No symptoms or risk factors identified. Assessment: 20:49 General: Appears in no apparent distress. Behavior is calm, cooperative, quiet. Pain: as6 Denies pain. Neuro: Level of Consciousness is awake, alert, obeys commands, Oriented to person, place, time, situation, Reports "my head feels foggy" . Cardiovascular: Capillary refill < 3 seconds Patient's skin is warm and dry. Respiratory: Respiratory effort is even, unlabored, Respiratory pattern is regular, symmetrical. Derm: Skin is intact, is healthy with good turgor. Vital Signs: 19:42 BP 180 / 105; Pulse 98; Resp 16; Temp 98.2; Pulse Ox 100% on R/A; iw 20:50 BP 133 / 88; Pulse 75; Resp 20 S; Pulse Ox 100% on R/A; as6 22:35 BP 133 / 84; Pulse 71; Resp 21 S; Pulse Ox 99% on R/A; as6 ED Course: 19:29 Patient arrived in ED. am2 19:43 Triage completed. iw 19:47 Arm band placed on. iw 19:58 Arias Perez MD is Attending Physician. rt 20:29 Alton Cisneros RN is Primary Nurse. as6 20:46 Inserted saline lock: 20 gauge in right antecubital area, using aseptic technique. as6 Blood collected. 20:50 Bed in low position. Call light in reach. Side rails up X 1. Client placed on as6 continuous cardiac and pulse oximetry monitoring. NIBP monitoring applied. 22:36 Provided Education on: discharge teaching. as6 22:36 No provider procedures requiring assistance completed. IV discontinued, intact, as6 bleeding controlled, No redness/swelling at site. Pressure dressing applied. Administered Medications: 20:47 Drug: NS 0.9% IV 1000 ml Route: IV; Rate: 1 bolus; Site: right antecubital; as6 22:37 Follow up: Response: No adverse reaction; IV Status: Completed infusion; IV Intake: as6 1000ml Medication: 20:50 VIS not applicable for this client. as6 Intake: 22:37 IV: 1000ml; Total: 1000ml. as6 Outcome: 22:10 Discharge ordered by . rt 22:36 Discharged to home ambulatory. as6 22:36 Condition: stable 22:36 Discharge instructions given to patient, Instructed on discharge instructions, follow up and referral plans. Demonstrated understanding of instructions, follow-up care. 22:39 Patient left the ED. as6 Signatures: Joselyn Card RN RN iw Gillian Major am2 Alton Cisneros RN RN as6 [place], Arias, MD MD rt
--- NOTE | 2022-11-27 22:11 | EDPHYS ---
Physician Documentation [facility] Name: Porfirio Bangura Age: 27 yrs Sex: Male : 1995 Arrival Date: 11/27/2022 Time: 19:27 Bed 18 Private MD: ED Physician Arias Perez HPI: 11/28 00:59 This 27 yrs old Male presents to ER via Ambulatory with complaints of brain/head feels rt foggy, Difficulty Swallowing. 00:59 Patient presents to the ED with reported dry throat, feeling that his brain was foggy. 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 Denies other acute complaints at this time. Symptoms are moderate severity, no other aggravating or alleviating factors.. Historical: - Allergies: 11/27 19:47 Bees; iw - PMHx: 19:47 Anxiety; Depression; iw - Immunization history:: Adult Immunizations unknown. - Social history:: Smoking status: Patient/guardian denies using alcohol, street drugs. - Family history:: not pertinent. ROS: 11/28 00:59 Constitutional: Negative for fever, chills, and weight loss, Cardiovascular: Negative rt for chest pain, palpitations, and edema, Respiratory: Negative for shortness of breath, cough, wheezing, and pleuritic chest pain, Abdomen/GI: Negative for abdominal pain, nausea, vomiting, diarrhea, and constipation, MS/Extremity: Negative for injury and deformity, Skin: Negative for injury, rash, and discoloration, Neuro: Negative for headache, weakness, numbness, tingling, and seizure, Psych: Negative for depression, anxiety, suicide ideation, homicidal ideation, and hallucinations. Exam: 00:59 Constitutional: This is a well developed, well nourished patient who is awake, alert, rt and in no acute distress. Head/Face: Normocephalic, atraumatic. Chest/axilla: Normal chest wall appearance and motion. Nontender with no deformity. No lesions are appreciated. Cardiovascular: Regular rate and rhythm with a normal S1 and S2. No gallops, murmurs, or rubs. Normal PMI, no JVD. No pulse deficits. Respiratory: Lungs have equal breath sounds bilaterally, clear to auscultation and percussion. No rales, rhonchi or wheezes noted. No increased work of breathing, no retractions or nasal flaring. Abdomen/GI: Soft, non-tender, with normal bowel sounds. No distension or tympany. No guarding or rebound. No evidence of tenderness throughout. Skin: Warm, dry with normal turgor. Normal color with no rashes, no lesions, and no evidence of cellulitis. MS/ Extremity: Pulses equal, no cyanosis. Neurovascular intact. Full, normal range of motion. Neuro: Awake and alert, GCS 15, oriented to person, place, time, and situation. Cranial nerves II-XII grossly intact. Motor strength 5/5 in all extremities. Sensory grossly intact. Cerebellar exam normal. Normal gait. Psych: Awake, alert, with orientation to person, place and time. Behavior, mood, and affect are within normal limits. 00:59 ECG was reviewed by the Attending Physician. Vital Signs: 11/27 19:42 BP 180 / 105; Pulse 98; Resp 16; Temp 98.2; Pulse Ox 100% on R/A; iw 20:50 BP 133 / 88; Pulse 75; Resp 20 S; Pulse Ox 100% on R/A; as6 22:35 BP 133 / 84; Pulse 71; Resp 21 S; Pulse Ox 99% on R/A; as6 MDM: 20:22 Patient medically screened. rt 11/28 00:59 Differential diagnosis: Dehydration, electrolyte disturbance, ACS, dysrhythmia. Data rt reviewed: vital signs, nurses notes, lab test result(s), EKG. I considered the following discharge prescriptions or medication management in the emergency department Medications were administered in the Emergency Department. See MAR. Test considered but Not performed: CT: No focal neurologic deficits, symptoms resolved with treatment in the ED, CT scan of the head not indicated. Counseling: I had a detailed discussion with the patient and/or guardian regarding: the historical points, exam findings, and any diagnostic results supporting the discharge/admit diagnosis, lab results, the need for outpatient follow up, to return to the emergency department if symptoms worsen or persist or if there are any questions or concerns that arise at home. 11/27 20:29 Order name: CBC with Diff; Complete Time: 21:22 rt 11/27 20:29 Order name: CMP; Complete Time: 21:22 rt 11/27 20:29 Order name: TSH; Complete Time: :22 rt 11/27 20:29 Order name: Troponin High Sensitivity; Complete Time: : rt 11/27 20:29 Order name: CPK; Complete Time: : rt 11/27 20:29 Order name: EKG; Complete Time: 20:30 rt 08 20:29 Order name: EKG - Nurse/Tech; Complete Time: 20:46 rt EC:59 Rate is 72 beats/min. Rhythm is regular, Normal Sinus Rhythm with No ectopy. Right axis rt deviation noted. MA interval is normal. QRS interval is normal. QT interval is normal. No Q waves. T waves are Normal. No ST changes noted. Interpreted by me. Administered Medications: 11/27 20:47 Drug: NS 0.9% IV 1000 ml Route: IV; Rate: 1 bolus; Site: right antecubital; as6 22:37 Follow up: Response: No adverse reaction; IV Status: Completed infusion; IV Intake: as6 1000ml Disposition Summary: 11/27/22 22:10 Discharge Ordered Location: Home rt Problem: new rt Symptoms: are resolved rt Condition: Stable rt Diagnosis - Dehydration rt Followup: rt - With: Private Physician - When: 2 - 3 days - Reason: Discharge Instructions: - Discharge Summary Sheet rt - Dehydration, Adult rt Forms: - Medication Reconciliation Form rt - Thank You Letter rt - Antibiotic Education rt - Prescription Opioid Use rt - Patient Portal Instructions rt Signatures: Dispatcher [employer] Joselyn Chan, ANGLE BARBOUR iw Alton Cisneros RN RN as6 Arias Perez MD MD rt
[2022-11-27 23:24] VITALS: TEMP 98.2
[2022-11-27 23:26] VITALS: BP 133/84; O2SAT 99
== END 2022-11-27 22:39 | disposition home or self-care (01) ==
LOC: ER 19:27
DX: E86.0 Dehydration (principal); Z91.030 Bee allergy status
CPT/HCPCS: 85025; 36415; 82550; 84443; 84484; 80053; J7030; 93005